=== PATIENT | female | born 1955 | race Caucasian/White ===

== ENCOUNTER 2017-09-27 15:36 | Emergency (ER) | payer MEDICARE, SELFPAY ==
[2017-09-27 15:57] VITALS: BP 132/81; PULSE 97; RESP 16; TEMP 37.2; O2SAT 96; BMI 38.0
--- NOTE | 2017-09-27 17:48 | ED_ITS ---
HPI - Skin/Abscess/Foreign Bdy General Chief complaint: Skin/Abscess/Foreign Body Stated complaint: STATES CYST ON BACK OF HER NECK Time Seen by Provider: 09/27/17 17:10 Source: patient Mode of arrival: ambulatory Limitations: no limitations History of Present Illness HPI narrative: 61-year-old female here for evaluation of a cyst on the back of her neck. She states that she has had a ?cyst? on the back of her neck for 8 years. She states that over the past week and a half it has become larger and red and painful. She states at 1 point it did drain a foul-smelling material. No fevers. She has been sick to her stomach however. No prior abscesses needing incision and drainage. Related Data Home Medications Medication Instructions Recorded Confirmed fluoxetine [Prozac] 80 mg PO QDAY #0 07/01/16 09/27/17 lamotrigine 2 tab PO QDAY #0 08/27/16 09/27/17 diphenhydramine HCl [Benadryl 25 mg PO PRN PRN #0 03/23/17 Allergy] diazepam 5 mg PO DAILY 09/27/17 09/27/17 prazosin 1 cap PO BEDTIME 09/27/17 09/27/17 Previous Rx's Medication Instructions Recorded dihydroergotamine [Migranal] 4 spray INTRANASAL SEE 07/01/16 INSTRUCTIONS PRN #1 pac VITAMIN D (Vitamin D2) 50,000 units PO QWEEK #8 cap 08/27/16 ciprofloxacin HCl [Cipro] 500 mg PO BID #14 tab 03/23/17 oxycodone-acetaminophen 5 mg-325 1 - 2 tab PO Q6HP PRN #20 tab 08/01/17 mg tablet ondansetron 4 mg PO BID-TID PRN #10 tab 09/27/17 oxycodone-acetaminophen 1 tab PO Q4-6H PRN #7 tab 09/27/17 Allergies Allergy/AdvReac Type Severity Reaction Status Date / Time banana Allergy Severe THROAT Verified 09/27/17 16:03 SWELLING gabapentin Allergy Severe Anaphylaxis Verified 09/27/17 16:03 morphine [MORPHINE] Allergy Intermediate ITCHING Verified 09/27/17 16:03 TINGLING SENSATION fluticasone [FLUTICASONE] Allergy Mild Verified 09/27/17 16:03 ipratropium [IPRATROPIUM] Allergy Mild Verified 09/27/17 16:03 latex [LATEX] Allergy Mild Verified 09/27/17 16:03 salmeterol [SALMETEROL] Allergy Mild Verified 09/27/17 16:03 lactose Allergy Unknown Verified 09/27/17 16:03 nitrofurantoin Allergy Unknown RASH, Verified 09/27/17 16:03 [NITROFURANTOIN] THROAT CLOSES peanut Allergy Unknown Verified 09/27/17 16:03 penicillin G [PENICILLIN G] Allergy Unknown Verified 09/27/17 16:03 shellfish derived Allergy Unknown Verified 09/27/17 16:03 [SHELLFISH DERIVED] Sulfa (Sulfonamide Allergy Unknown Verified 09/27/17 16:03 Antibiotics) venom-honey bee Allergy Unknown Verified 09/27/17 16:03 [BEE VENOM (HONEY BEE)] WHITNEY NUT Allergy Severe THROAT Uncoded 09/27/17 16:03 SWELLING pet dander Allergy Intermediate sneezing, Uncoded 09/27/17 16:03 coughing MELON Allergy Mild HIVES Uncoded 09/27/17 16:03 Diamond Allergy Unknown Uncoded 09/27/17 16:03 MACADEMIA NUT Allergy Unknown THROAT Uncoded 09/27/17 16:03 SWELLING Review of Systems Constitutional Reports fatigue, Denies fever(s) and Denies headache(s) ENT Ears, Nose, Mouth, and Throat: Denies headache(s) Cardiovascular Denies chest pain and Denies dyspnea Respiratory Denies dyspnea Gastrointestinal Gastrointestinal: Denies abdominal pain, Reports nausea and Reports vomiting Integumentary/Breasts Comments: Skin swelling and redness the back or neck Neurologic Denies headache(s) Endocrine Reports fatigue Hematologic/Lymphatic Denies easy bleeding and Denies easy bruising REPLACED BY [facility] Medical History Agoraphobia (Chronic) Anxiety (Chronic) Bipolar disorder (Chronic) Fibroids (Chronic) Migraines (Chronic) PTSD (post-traumatic stress disorder) (Chronic) History of depression (Resolved) Surgical History Status post hysterectomy (~2001) Status post laparoscopy Status post laparoscopy Social History Smoking Status: Never smoker Exam Initial Vital Signs Initial Vital Signs: Vital Signs Temperature 99.0 F 09/27/17 15:57 Pulse Rate 97 H 09/27/17 15:57 Respiratory Rate 16 09/27/17 15:57 Blood Pressure 132/81 H 09/27/17 15:57 Pulse Oximetry 96 09/27/17 15:57 Const General: cooperative, healthy appearing, comfortable, well developed, well groomed and No acute distress Orientation: alert, awake and oriented x3 HENMT Head: normal to inspection and normocephalic Neck Other: Patient with a 8 cm area of induration with a 5 cm area of redness midline on the back of her neck. Tender to touch. Fluctuant. Well-demarcated. Skin Other: See neck section for skin evaluation Neuro General: alert, awake and oriented x3 Psych Appearance: well kempt Procedures Abscess I/D Site: neck Local Anesthetic: lidocaine 1% and with epi Amount of anesthesia used (mL): 5 Technique: incised with #11 blade Amount of fluid expressed (mL): 15 Irrigation: No Packing used?: iodoform Course Vital Signs - 8 hr 09/27/17 15:57 Temperature 99.0 F Pulse Rate 97 H Respiratory Rate 16 Blood Pressure 132/81 H Pulse Oximetry 96 MDM - Skin/Abscess/Foreign Bdy MDM Narrative Medical decision making narrative: Patient with redness over the abscess on the back of her neck. The abscess was confirmed by bedside ultrasound. Drainage revealed approximately 15 cc of foul-smelling purulent material. There was packing placed secondary to the depth of the whole left. Secondary to no surrounding cellulitis will hold on antibiotics. Will send home with pain medication. Patient was given care instructions. She expressed understanding and agreement with plan. Discharge Plan Departure Patient Disposition: Home Clinical Impression: Abscess of skin of neck Instructions: DI for Incision and Drainage of a Skin Abscess Activity Restrictions/Additional Instructions: Expect some oozing from the site on the back of her neck. Keep it covered with a bandage. Change the bandage as needed when a become soiled. After 24 hr you can shower like normal. You can use soap and water like normal. The packing does need to be changed in approximately 48 hr. Call your primary care doctor for this. Return to the emergency department for any new or worsening symptoms Prescriptions: New oxycodone-acetaminophen 5-325 mg tablet 1 tab PO Q4-6H PRN (Reason: pain) Qty: 7 RF: 0 ondansetron 4 mg tablet,disintegrating 4 mg PO BID-TID PRN (Reason: nausea and vomiting) Qty: 10 RF: 0 No Action fluoxetine [Prozac] 40 MG capsule 80 mg PO QDAY Qty: 0 RF: 0 dihydroergotamine [Migranal] 4 MG/ML spray,non-aerosol 4 spray Intranasal SEE INSTRUCTIONS PRNQty: 1 RF: 0 lamotrigine 150 MG tablet 2 tab PO QDAY Qty: 0 RF: 0 VITAMIN D (Vitamin D2) 50,000 units PO QWEEK Qty: 8 RF: 0 diphenhydramine HCl [Benadryl Allergy] 25 MG tablet 25 mg PO PRN PRNQty: 0 RF: 0 ciprofloxacin HCl [Cipro] 500 MG tablet 500 mg PO BID Qty: 14 RF: 0 oxycodone-acetaminophen [Percocet] 5-325 mg tablet 1 - 2 tab PO Q6HP PRN (Reason: pain) Qty: 20 RF: 0 prazosin 5 mg capsule 1 cap PO BEDTIME RF: 0 diazepam 5 MG tablet 5 mg PO DAILY RF: 0
[2017-09-27 18:22] VITALS: BP 113/66; PULSE 92; RESP 18; O2SAT 98
[2017-09-27] MEDS: OXYCODONE/ACETAMINOPHEN 5/325 TABLET 1 TAB PO (18:32)
== END 2017-09-27 19:14 | disposition home or self-care (01) ==
PROVIDERS: Emergency Provider Emergency Medicine; PCP Family Medicine
DX: L02.11 Cutaneous abscess of neck (principal)
CPT/HCPCS: 10060; 99282; 99283